=== PATIENT | male | born 1960 | race Caucasian/White ===

== ENCOUNTER 2018-03-08 06:40 | Inpatient (IN) | payer MEDICARE, OTHER ==
[2018-03-08] MEDS: SOD CHLORIDE 0.9% 1,000 ML IV ×2 (07:07→12:44)
[2018-03-08] MEDS: DEXTROSE 50% 50 ML SYRINGE IV ×2 (07:37→11:28)
[2018-03-08 07:59] LABS: ADD MAN DIFF? NO
[2018-03-08 09:23] LABS: WHITE BLOOD COUNT 18.6 10^3/ul (4.8-10.8)
[2018-03-08 09:23] LABS: BASOPHIL # 0.1 10^3/ul (0.0-0.1); BASOPHILS % 0.3 % (0.0-2.0); HEMATOCRIT 34.3 % (42.0-52.0); HEMOGLOBIN 11.9 g/dl (14.0-18.0); MEAN CORPUSCULAR HGB CONC 34.7 g/dl (32.0-37.0); MEAN CORPUSCULAR VOLUME 89.3 fl (82.0-101.0); MEAN PLATELET VOLUME 9.9 fl (7.4-10.4); MONOCYTE # 1.2 10^3/ul (0.3-0.9); MONOCYTES % 6.5 % (0.0-11.0); NEUTROPHILS % 80.8 % (39.0-77.0); PLATELET COUNT 266 10^3/UL (140-415); RED BLOOD COUNT 3.84 10^6/ul (4.70-6.10); RED CELL DISTRIBUTION WIDTH 16.8 % (11.5-14.5)
[2018-03-08 09:53] LABS: ALANINE AMINOTRANSFERASE 59 IU/L (13-69); ALBUMIN 1.9 g/dl (3.3-4.9); ALKALINE PHOSPHATASE 260 IU/L (42-121); ANION GAP 14 (8-16); ASPARTATE AMINO TRANSFERASE 77 IU/L (15-46); BILIRUBIN,INDIRECT 0.4 mg/dl (0-1.1); BILIRUBIN,TOTAL 0.7 mg/dl (0.2-1.3); BLOOD UREA NITROGEN 37 mg/dl (7-20); CALCIUM 7.4 mg/dl (8.4-10.2); CARBON DIOXIDE 22 mmol/L (21-31); CHLORIDE 97 mmol/L (97-110); GLUCOSE 91 mg/dl (70-220); POTASSIUM 4.6 mmol/L (3.5-5.1); SODIUM 128 mmol/L (135-144); TOTAL PROTEIN 4.6 g/dl (6.1-8.1)
[2018-03-08] MEDS: SODIUM CHLORIDE 0.9% 1L BAG IV* (09:57)
[2018-03-08 10:01] LABS: CREATININE 2.45 mg/dl (0.61-1.24)
[2018-03-08] MEDS: CEFEPIME 2GM/50 ML (PMX) 50 ML IVPB (10:09)
[2018-03-08] MEDS: VANCOMYCIN 1 GM (PMX) 250 ML IVPB (10:24)
[2018-03-08 10:48] LABS: ADD UMIC YES; UR AMORPHOUS CRYSTAL FEW /HPF (NONE SEEN); UR ASCORBIC ACID NEGATIVE (NEGATIVE); UR BACTERIA MANY /HPF (NONE SEEN); UR BILIRUBIN (Dip) 1+ mg/dL (NEGATIVE); UR BLOOD (Dip) NEGATIVE (NEGATIVE); UR CLARITY CLOUDY (CLEAR); UR COLOR AMBER (YELLOW); UR GLUCOSE (Dip) NEGATIVE (NEGATIVE); UR KETONES (Dip) NEGATIVE (NEGATIVE); UR LEUKOCYTE ESTERASE (Dip) 2+ Leu/ul (NEGATIVE); UR MUCUS FEW /HPF (NONE SEEN); UR NITRITE (Dip) NEGATIVE (NEGATIVE); UR RBC 5 /HPF (0-5); UR SPECIFIC GRAVITY (Dip) 1.021 (1.003-1.030); UR SQUAMOUS EPITHELIAL CELL FEW /HPF (FEW); UR TOTAL PROTEIN (Dip) 1+ mg/dl (NEGATIVE); UR UROBILINOGEN (Dip) 2+ mg/dL (NEGATIVE); UR WBC 110 /HPF (0-5)
[2018-03-08] MEDS ORDERED: DEXTROSE 50% 50 ML SYRINGE IV (11:30)
[2018-03-08 11:43] LABS: LACTIC ACID 1.1 mmol/L (0.5-2.0)
[2018-03-08] MEDS: DEXTROSE 5%-0.9% NACL 1,000 ML IV ×2 (12:29→17:30)
[2018-03-08] MEDS ORDERED: NACL 0.9% 3 ML SYG IV (12:30)
[2018-03-08] MEDS ORDERED: ACETAMINOPHEN 325 MG TAB PO ×2 (12:30→13:00)
[2018-03-08] MEDS ORDERED: ONDANSETRON 4 MG INJ IV (13:00)
[2018-03-08 13:42] LABS: LACTIC ACID 2.4 mmol/L (0.5-2.0)
[2018-03-08] MEDS ORDERED: ONDANSETRON 4 MG TAB PO (14:30)
[2018-03-08] MEDS ORDERED: MINERAL OIL 133 ML ENEMA PR (14:30)
[2018-03-08] MEDS ORDERED: METOCLOPRAMIDE 10 MG TAB PO (14:30)
[2018-03-08] MEDS ORDERED: MAGNESIUM HYDROXIDE 30ML CUP PO (14:30)
[2018-03-08] MEDS ORDERED: ALBUTEROL HFA 8 GM INHALER INH (14:30)
[2018-03-08] MEDS ORDERED: BISACODYL (EC) 5 MG TAB PO (14:30)
[2018-03-08] MEDS: LIDOCAINE 1% (MPF) 5 ML VIAL SC (16:00)
[2018-03-08] MEDS: metroNIDAZOLE 500 MG TAB PO ×2 (16:00→21:30)
[2018-03-08] MEDS: PANTOPRAZOLE (EC) 40 MG TAB PO (16:00)
[2018-03-08 16:04] LABS: SODIUM,URINE RANDOM 19 mmol/L (30-90)
[2018-03-08 16:14] LABS: CREATININE,URINE RANDOM 240.26 mg/dl (20-370)
[2018-03-08 16:35] LABS: LACTIC ACID 1.6 mmol/L (0.5-2.0)
[2018-03-08] MEDS: SUCRALFATE (100 MG/ML) 10ML CUP PO ×2 (17:05→21:30)
[2018-03-08] MEDS: NORepinephrine 8MG/250 ML (PMX 250 ML IV ×2 (17:06→18:40)
[2018-03-08] MEDS: RIVAROXABAN 20 MG TABLET PO (17:35)
[2018-03-08] MEDS: TAMSULOSIN (SR) 0.4 MG CAP PO (21:30)
[2018-03-08] MEDS: ATORVASTATIN 80 MG TAB PO (21:30)
[2018-03-09] MEDS: DEXTROSE 5%-0.9% NACL 1,000 ML IV ×5 (00:18→18:30)
[2018-03-09] MEDS: PANTOPRAZOLE (EC) 40 MG TAB PO ×2 (05:36→16:00)
[2018-03-09] MEDS: metroNIDAZOLE 500 MG TAB PO ×2 (05:36→13:48)
[2018-03-09 06:17] LABS: ADD MAN DIFF? NO
[2018-03-09 06:34] LABS: WHITE BLOOD COUNT 15.1 10^3/ul (4.8-10.8)
[2018-03-09 06:34] LABS: ABNORMAL IP MESSAGE 1; BASOPHILS % 0.1 % (0.0-2.0); EOSINOPHILS # 0.1 10^3/ul (0.0-0.5); EOSINOPHILS % 0.3 % (0.0-7.0); HEMATOCRIT 28.4 % (42.0-52.0); HEMOGLOBIN 10.3 g/dl (14.0-18.0); LYMPHOCYTES # 1.5 10^3/ul (0.8-2.9); LYMPHOCYTES % 10.2 % (15.0-51.0); MEAN CORPUSCULAR HEMOGLOBIN 31.7 pg (29.0-33.0); MEAN CORPUSCULAR HGB CONC 36.3 g/dl (32.0-37.0); MEAN CORPUSCULAR VOLUME 87.4 fl (82.0-101.0); MEAN PLATELET VOLUME 10.6 fl (7.4-10.4); MONOCYTES % 6.5 % (0.0-11.0); NEUTROPHIL # 12.4 10^3/ul (1.6-7.5); PLATELET COUNT 240 10^3/UL (140-415); POSITIVE DIFF @See below; RED BLOOD COUNT 3.25 10^6/ul (4.70-6.10); RED CELL DISTRIBUTION WIDTH 16.7 % (11.5-14.5)
[2018-03-09] MEDS: SUCRALFATE (100 MG/ML) 10ML CUP PO ×4 (07:05→21:20)
[2018-03-09 07:07] LABS: ANION GAP 14 (8-16); BLOOD UREA NITROGEN 33 mg/dl (7-20); CALCIUM 6.7 mg/dl (8.4-10.2); CARBON DIOXIDE 18 mmol/L (21-31); CHLORIDE 102 mmol/L (97-110); CREATININE 2.08 mg/dl (0.61-1.24); GLUCOSE 126 mg/dl (70-220); MAGNESIUM 1.6 mg/dl (1.7-2.5); POTASSIUM 3.7 mmol/L (3.5-5.1); SODIUM 130 mmol/L (135-144)
[2018-03-09 07:08] LABS: ALANINE AMINOTRANSFERASE 71 IU/L (13-69); ALBUMIN 1.6 g/dl (3.3-4.9); ALKALINE PHOSPHATASE 255 IU/L (42-121); ASPARTATE AMINO TRANSFERASE 89 IU/L (15-46); BILIRUBIN,INDIRECT 0.2 mg/dl (0-1.1); BILIRUBIN,TOTAL 0.6 mg/dl (0.2-1.3); TOTAL PROTEIN 3.8 g/dl (6.1-8.1)
[2018-03-09 07:18] LABS: IRON 37 ug/dl (35-150)
[2018-03-09 07:28] LABS: % IRON SATURATION 32 % SAT (22-52); TOTAL IRON BINDING CAPACITY 115 ug/dl (241-421)
[2018-03-09 08:00] LABS: HEMOGLOBIN A1C 4.6 % (0-5.9)
[2018-03-09] MEDS: MAGNESIUM OXIDE 400 MG TAB PO (08:24)
[2018-03-09] MEDS: CHOLECALCIFEROL 1,000 UNIT TAB PO (08:24)
[2018-03-09] MEDS ORDERED: ENOXAPARIN 40 MG/0.4 ML SYG SC (09:00)
[2018-03-09] MEDS: CEFEPIME 2GM/50 ML (PMX) 50 ML IVPB (11:35)
[2018-03-09] MEDS: LIDOCAINE 1% (MPF) 5 ML VIAL SC (12:45)
[2018-03-09] MEDS: RIVAROXABAN 20 MG TABLET PO (16:36)
[2018-03-09] MEDS: LIDOCAINE 1% (MDV) 10 ML INJ (17:57)
[2018-03-09] MEDS: ATORVASTATIN 80 MG TAB PO (21:20)
[2018-03-09] MEDS: TAMSULOSIN (SR) 0.4 MG CAP PO (21:20)
[2018-03-10] MEDS: DEXTROSE 5%-0.9% NACL 1,000 ML IV ×2 (00:05→13:33)
[2018-03-10] MEDS: SOD CHLORIDE 0.9% 1,000 ML IV ×2 (03:43→17:13)
[2018-03-10 05:35] LABS: ADD MAN DIFF? NO
[2018-03-10 05:47] LABS: WHITE BLOOD COUNT 12.1 10^3/ul (4.8-10.8)
[2018-03-10 05:47] LABS: ABNORMAL IP MESSAGE 1; BASOPHILS % 0.2 % (0.0-2.0); EOSINOPHILS # 0.1 10^3/ul (0.0-0.5); EOSINOPHILS % 0.4 % (0.0-7.0); HEMATOCRIT 28.3 % (42.0-52.0); LYMPHOCYTES # 1.8 10^3/ul (0.8-2.9); MEAN CORPUSCULAR HEMOGLOBIN 30.7 pg (29.0-33.0); MEAN CORPUSCULAR HGB CONC 35.3 g/dl (32.0-37.0); MEAN CORPUSCULAR VOLUME 86.8 fl (82.0-101.0); MEAN PLATELET VOLUME 10.5 fl (7.4-10.4); MONOCYTE # 0.8 10^3/ul (0.3-0.9); MONOCYTES % 6.6 % (0.0-11.0); NEUTROPHIL # 9.2 10^3/ul (1.6-7.5); NEUTROPHILS % 76.2 % (39.0-77.0); PLATELET COUNT 194 10^3/UL (140-415); POSITIVE DIFF @See below; RED BLOOD COUNT 3.26 10^6/ul (4.70-6.10); RED CELL DISTRIBUTION WIDTH 16.9 % (11.5-14.5)
[2018-03-10 06:11] LABS: ALANINE AMINOTRANSFERASE 82 IU/L (13-69); ALBUMIN 1.5 g/dl (3.3-4.9); ALBUMIN/GLOBULIN RATIO 0.62; ALKALINE PHOSPHATASE 259 IU/L (42-121); ANION GAP 11 (8-16); ASPARTATE AMINO TRANSFERASE 103 IU/L (15-46); BILIRUBIN,INDIRECT 0.3 mg/dl (0-1.1); BILIRUBIN,TOTAL 0.5 mg/dl (0.2-1.3); BLOOD UREA NITROGEN 31 mg/dl (7-20); CALCIUM 6.6 mg/dl (8.4-10.2); CARBON DIOXIDE 18 mmol/L (21-31); CHLORIDE 106 mmol/L (97-110); CREATININE 1.75 mg/dl (0.61-1.24); GLUCOSE 96 mg/dl (70-220); MAGNESIUM 1.6 mg/dl (1.7-2.5); PHOSPHORUS 2.5 mg/dl (2.5-4.9); POTASSIUM 3.7 mmol/L (3.5-5.1); SODIUM 131 mmol/L (135-144); TOTAL PROTEIN 3.9 g/dl (6.1-8.1)
[2018-03-10] MEDS: PANTOPRAZOLE (EC) 40 MG TAB PO ×2 (06:47→17:18)
[2018-03-10] MEDS: SUCRALFATE (100 MG/ML) 10ML CUP PO ×4 (06:47→21:20)
[2018-03-10] MEDS: MAGNESIUM OXIDE 400 MG TAB PO (08:33)
[2018-03-10] MEDS: CHOLECALCIFEROL 1,000 UNIT TAB PO (08:33)
[2018-03-10] MEDS: CEFEPIME 2GM/50 ML (PMX) 50 ML IVPB (10:19)
[2018-03-10] MEDS: RIVAROXABAN 20 MG TABLET PO (17:18)
[2018-03-10] MEDS: TAMSULOSIN (SR) 0.4 MG CAP PO (21:20)
[2018-03-10] MEDS: ATORVASTATIN 80 MG TAB PO (21:20)
[2018-03-11] MEDS: SOD CHLORIDE 0.9% 1,000 ML IV ×7 (01:38→23:36)
[2018-03-11 05:56] LABS: HEMATOCRIT 32.8 % (42.0-52.0); HEMOGLOBIN 11.7 g/dl (14.0-18.0); MEAN CORPUSCULAR HEMOGLOBIN 30.5 pg (29.0-33.0); MEAN CORPUSCULAR HGB CONC 35.7 g/dl (32.0-37.0); MEAN CORPUSCULAR VOLUME 85.6 fl (82.0-101.0); MEAN PLATELET VOLUME 10.4 fl (7.4-10.4); PLATELET COUNT 155 10^3/UL (140-415); POSITIVE DIFF @See below; RED BLOOD COUNT 3.83 10^6/ul (4.70-6.10); RED CELL DISTRIBUTION WIDTH 17.1 % (11.5-14.5)
[2018-03-11 05:56] LABS: WHITE BLOOD COUNT 12.9 10^3/ul (4.8-10.8)
[2018-03-11 06:15] LABS: ADD MAN DIFF? YES
[2018-03-11] MEDS: PANTOPRAZOLE (EC) 40 MG TAB PO ×3 (06:44→18:00)
[2018-03-11] MEDS: SUCRALFATE (100 MG/ML) 10ML CUP PO ×4 (06:44→21:22)
[2018-03-11 06:51] LABS: ALANINE AMINOTRANSFERASE 92 IU/L (13-69); ALBUMIN 1.5 g/dl (3.3-4.9); ALBUMIN/GLOBULIN RATIO 0.62; ALKALINE PHOSPHATASE 380 IU/L (42-121); ANION GAP 10 (8-16); ASPARTATE AMINO TRANSFERASE 114 IU/L (15-46); BILIRUBIN,INDIRECT 0.3 mg/dl (0-1.1); BILIRUBIN,TOTAL 0.3 mg/dl (0.2-1.3); BLOOD UREA NITROGEN 29 mg/dl (7-20); CALCIUM 6.4 mg/dl (8.4-10.2); CARBON DIOXIDE 16 mmol/L (21-31); CHLORIDE 106 mmol/L (97-110); CREATININE 1.35 mg/dl (0.61-1.24); GLUCOSE 99 mg/dl (70-220); MAGNESIUM 1.6 mg/dl (1.7-2.5); PHOSPHORUS 2.5 mg/dl (2.5-4.9); POTASSIUM 3.7 mmol/L (3.5-5.1); SODIUM 128 mmol/L (135-144); TOTAL PROTEIN 3.9 g/dl (6.1-8.1)
[2018-03-11] MEDS: VASOPRESSIN 100 UNIT in SOD CHLORIDE 0.9% 95 ML IV (07:56)
[2018-03-11 08:33] LABS: ANISOCYTOSIS 2+ (0-0); BAND NEUTROPHILS #M 0.3 10^3/ul (0.0-0.6); BAND NEUTROPHILS % (M) 3 % (0-4); BURR CELLS 3+ (0-0); EOSINOPHILS % (M) 1 % (0-7); LYMPHOCYTES % (M) 16 % (15-51); MONOCYTE #M 0.9 10^3/ul (0.3-0.9); MONOCYTES % (M) 7 % (0-11); OVALOCYTES 1+ (0-0); PLATELET ESTIMATE NORMAL; POIKILOCYTOSIS 2+ (0-0); POLYCHROMASIA 1+ (0-0); SEG NEUT #M 9.5 10^3/ul (1.6-7.5); SEGMENTED NEUTROPHILS (M) % 73 % (39-77); SMUDGE%M 6 % (0-0)
[2018-03-11] MEDS: MAGNESIUM OXIDE 400 MG TAB PO (08:51)
[2018-03-11] MEDS: CEFEPIME 2GM/50 ML (PMX) 50 ML IVPB (08:51)
[2018-03-11] MEDS: CHOLECALCIFEROL 1,000 UNIT TAB PO (08:51)
[2018-03-11] MEDS: ALBUMIN HUMAN 25% 100 ML IV (10:31)
[2018-03-11] MEDS: metroNIDAZOLE 500 MG/NS (PMX) 100 ML IVPB (10:43)
[2018-03-11] MEDS: MAGNESIUM SULFATE 2 GM/50 ML 50 ML IVPB (10:53)
[2018-03-11 16:47] LABS: ADD UMIC YES; UR ASCORBIC ACID NEGATIVE (NEGATIVE); UR BACTERIA FEW /HPF (NONE SEEN); UR BILIRUBIN (Dip) NEGATIVE (NEGATIVE); UR BLOOD (Dip) 1+ mg/dL (NEGATIVE); UR CLARITY SLIGHTLY CLOUDY (CLEAR); UR COLOR AMBER (YELLOW); UR GLUCOSE (Dip) NEGATIVE (NEGATIVE); UR KETONES (Dip) TRACE mg/dL (NEGATIVE); UR LEUKOCYTE ESTERASE (Dip) NEGATIVE Leu/ul (NEGATIVE); UR MUCUS FEW /HPF (NONE SEEN); UR NITRITE (Dip) NEGATIVE (NEGATIVE); UR RBC 2 /HPF (0-5); UR SPECIFIC GRAVITY (Dip) 1.021 (1.003-1.030); UR SQUAMOUS EPITHELIAL CELL FEW /HPF (FEW); UR TOTAL PROTEIN (Dip) 1+ mg/dl (NEGATIVE); UR UROBILINOGEN (Dip) 1+ mg/dL (NEGATIVE); UR WBC 16 /HPF (0-5)
[2018-03-11] MEDS: RIVAROXABAN 20 MG TABLET PO (18:00)
[2018-03-11] MEDS: CASPOFUNGIN 70 MG in SOD CHLORIDE 0.9% 250 ML IVPB (18:03)
[2018-03-11] MEDS: VANCOMYCIN HCL 250 MG/5ML POSYG PO ×2 (18:03→23:36)
[2018-03-11] MEDS: PIPER-TAZO 3.375 GM IV (PMX) 100 ML IVPB (21:22)
[2018-03-11] MEDS: ATORVASTATIN 80 MG TAB PO (21:22)
[2018-03-11] MEDS: TAMSULOSIN (SR) 0.4 MG CAP PO (21:22)
[2018-03-12 04:49] LABS: ADD MAN DIFF? NO
[2018-03-12 04:54] LABS: WHITE BLOOD COUNT 11.2 10^3/ul (4.8-10.8)
[2018-03-12 04:54] LABS: BASOPHILS % 0.2 % (0.0-2.0); EOSINOPHILS # 0.1 10^3/ul (0.0-0.5); EOSINOPHILS % 1.2 % (0.0-7.0); HEMOGLOBIN 11.1 g/dl (14.0-18.0); LYMPHOCYTES # 1.6 10^3/ul (0.8-2.9); LYMPHOCYTES % 13.9 % (15.0-51.0); MEAN CORPUSCULAR HEMOGLOBIN 30.1 pg (29.0-33.0); MEAN CORPUSCULAR HGB CONC 34.7 g/dl (32.0-37.0); MEAN CORPUSCULAR VOLUME 86.7 fl (82.0-101.0); MEAN PLATELET VOLUME 10.7 fl (7.4-10.4); MONOCYTE # 0.6 10^3/ul (0.3-0.9); NEUTROPHIL # 8.8 10^3/ul (1.6-7.5); PLATELET COUNT 142 10^3/UL (140-415); POSITIVE DIFF @See below; RED BLOOD COUNT 3.69 10^6/ul (4.70-6.10); RED CELL DISTRIBUTION WIDTH 17.3 % (11.5-14.5)
[2018-03-12] MEDS: SOD CHLORIDE 0.9% 1,000 ML IV ×2 (05:06→10:05)
[2018-03-12 05:26] LABS: ALANINE AMINOTRANSFERASE 81 IU/L (13-69); ALBUMIN 1.4 g/dl (3.3-4.9); ALKALINE PHOSPHATASE 507 IU/L (42-121); ANION GAP 10 (8-16); ASPARTATE AMINO TRANSFERASE 112 IU/L (15-46); BILIRUBIN,INDIRECT 0.3 mg/dl (0-1.1); BILIRUBIN,TOTAL 0.4 mg/dl (0.2-1.3); BLOOD UREA NITROGEN 26 mg/dl (7-20); CALCIUM 6.3 mg/dl (8.4-10.2); CARBON DIOXIDE 15 mmol/L (21-31); CHLORIDE 108 mmol/L (97-110); CREATININE 1.16 mg/dl (0.61-1.24); GLUCOSE 107 mg/dl (70-220); MAGNESIUM 1.9 mg/dl (1.7-2.5); PHOSPHORUS 2.5 mg/dl (2.5-4.9); POTASSIUM 3.4 mmol/L (3.5-5.1); SODIUM 130 mmol/L (135-144); TOTAL PROTEIN 3.7 g/dl (6.1-8.1)
[2018-03-12] MEDS: PIPER-TAZO 3.375 GM IV (PMX) 100 ML IVPB ×3 (06:17→22:26)
[2018-03-12] MEDS: SUCRALFATE (100 MG/ML) 10ML CUP PO ×4 (06:17→21:00)
[2018-03-12] MEDS: VANCOMYCIN HCL 250 MG/5ML POSYG PO ×3 (06:17→18:26)
[2018-03-12] MEDS: PANTOPRAZOLE (EC) 40 MG TAB PO ×2 (06:17→17:21)
[2018-03-12 07:35] LABS: ANISOCYTOSIS 2+ (0-0); BAND NEUTROPHILS #M 0.6 10^3/ul (0.0-0.6); BAND NEUTROPHILS % (M) 6 % (0-4); BURR CELLS 3+ (0-0); EOSINOPHILS % (M) 1 % (0-7); LYMPHOCYTES % (M) 9 % (15-51); MONOCYTE #M 0.5 10^3/ul (0.3-0.9); MONOCYTES % (M) 5 % (0-11); PLATELET ESTIMATE NORMAL; POIKILOCYTOSIS 3+ (0-0); POLYCHROMASIA 1+ (0-0); SEG NEUT #M 8.9 10^3/ul (1.6-7.5); SEGMENTED NEUTROPHILS (M) % 79 % (39-77); SMUDGE%M 8 % (0-0)
[2018-03-12] MEDS: POTASSIUM CHLORIDE (SR) 20 MEQ TAB PO (10:05)
[2018-03-12] MEDS: CHOLECALCIFEROL 1,000 UNIT TAB PO (10:05)
[2018-03-12] MEDS: MAGNESIUM OXIDE 400 MG TAB PO (10:05)
[2018-03-12] MEDS: PHENYLephrine 40 MG in DEXTROSE 5% 496 ML IV (13:36)
[2018-03-12] MEDS: RIVAROXABAN 20 MG TABLET PO (17:21)
[2018-03-12] MEDS: CASPOFUNGIN 50 MG in SOD CHLORIDE 0.9% 250 ML IVPB (18:26)
[2018-03-12] MEDS: FUROSEMIDE 40 MG INJ IV (18:27)
[2018-03-12] MEDS: LINEZOLID 600 MG/D5W (PMX) 300 ML IVPB (19:00)
[2018-03-12 19:07] LABS: AMMONIA 27 umol/l (9-30)
[2018-03-12 19:19] LABS: ADD UMIC YES; UR ASCORBIC ACID NEGATIVE (NEGATIVE); UR BILIRUBIN (Dip) NEGATIVE (NEGATIVE); UR BLOOD (Dip) 1+ mg/dL (NEGATIVE); UR CLARITY CLOUDY (CLEAR); UR COLOR AMBER (YELLOW); UR GLUCOSE (Dip) NEGATIVE (NEGATIVE); UR KETONES (Dip) TRACE mg/dL (NEGATIVE); UR LEUKOCYTE ESTERASE (Dip) TRACE Leu/ul (NEGATIVE); UR MUCUS FEW /HPF (NONE SEEN); UR NITRITE (Dip) NEGATIVE (NEGATIVE); UR RBC 5 /HPF (0-5); UR SPECIFIC GRAVITY (Dip) 1.029 (1.003-1.030); UR TOTAL PROTEIN (Dip) 2+ mg/dl (NEGATIVE); UR UROBILINOGEN (Dip) NEGATIVE (NEGATIVE); UR WBC 14 /HPF (0-5)
[2018-03-12 19:55] LABS: ERYTHROCYTE SEDIMENTATION RATE 25 mm/Hr (0-20)
[2018-03-12] MEDS: NORepinephrine 32 MG in DEXTROSE 5% 218 ML IV (20:12)
[2018-03-12] MEDS: PHENYLephrine 160 MG in DEXTROSE 5% 484 ML IV (20:14)
[2018-03-12 20:27] LABS: ALANINE AMINOTRANSFERASE 86 IU/L (13-69); ALBUMIN 1.3 g/dl (3.3-4.9); ALBUMIN/GLOBULIN RATIO 0.72; ALKALINE PHOSPHATASE 509 IU/L (42-121); ANION GAP 16 (8-16); ASPARTATE AMINO TRANSFERASE 107 IU/L (15-46); BILIRUBIN,INDIRECT 0.1 mg/dl (0-1.1); BILIRUBIN,TOTAL 0.1 mg/dl (0.2-1.3); BLOOD UREA NITROGEN 26 mg/dl (7-20); CALCIUM 6.2 mg/dl (8.4-10.2); CARBON DIOXIDE 14 mmol/L (21-31); CHLORIDE 102 mmol/L (97-110); CREATININE 1.08 mg/dl (0.61-1.24); GLUCOSE 94 mg/dl (70-220); POTASSIUM 3.6 mmol/L (3.5-5.1); SODIUM 128 mmol/L (135-144); TOTAL PROTEIN 3.1 g/dl (6.1-8.1)
[2018-03-12 20:32] LABS: AMYLASE < 30 U/L (11-123)
[2018-03-12 20:44] LABS: OSMOLALITY,URINE 395 mOsm/kg (250-1200)
[2018-03-12 20:54] LABS: SODIUM,URINE RANDOM < 13 mmol/L (30-90)
[2018-03-12 20:57] LABS: VITAMIN B1 (THIAMINE) 53 nmol/L (78-185)
[2018-03-12] MEDS: TAMSULOSIN (SR) 0.4 MG CAP PO (21:00)
[2018-03-12] MEDS: ATORVASTATIN 80 MG TAB PO (21:00)
[2018-03-12] MEDS: BUMETANIDE 1 MG INJ IV ×2 (21:54→22:26)
[2018-03-12 22:09] LABS: AADO2 Arterial 227.6 mmHg (7.0-24.0); Arterial Base Excess -15.6 mmol/L (-3.0-3); Arterial Blood Gas Oxygen Sat 99.8 mmHG (95.0-98.0); Arterial COHb 0.5 % (0.0-3.0); Arterial HCO3 7.7 mmol/L (22.0-26.0); Arterial MetHb 0.3 % (0.0-1.5); Arterial Total Hemglobin 13.3 g/dl (12.0-18.0); Arterial pCO2 15.3 mmhg (35-45); Blood Gas IEPAP 15/5; MODE MASK - BIPAP; Site Right Radial
[2018-03-12] MEDS: METOLAZONE 10 MG TAB PO (22:22)
[2018-03-12] MEDS: NA BICARBONATE 8.4% 50 ML SYG IV (22:22)
[2018-03-12] MEDS: BALSAM PERU/CASTOR OIL 60 GM TUBE TOP (22:26)
[2018-03-13 01:16] LABS: AADO2 Arterial 126.3 mmHg (7.0-24.0); Allen Test ACCEPTAB; Arterial Base Excess -12.9 mmol/L (-3.0-3); Arterial Blood Gas Oxygen Sat 99.4 mmHG (95.0-98.0); Arterial COHb 0.5 % (0.0-3.0); Arterial Fraction of Oxyhgb 98.8 % (93.0-99.0); Arterial HCO3 9.7 mmol/L (22.0-26.0); Arterial MetHb 0.1 % (0.0-1.5); Arterial Total Hemglobin 16.1 g/dl (12.0-18.0); Blood Gas IEPAP 15/5; Blood Gas PS 10; MODE MASK - BIPAP; Site Right Radial
[2018-03-13] MEDS: NA BICARBONATE 8.4% 50 ML SYG IV ×2 (01:57→05:52)
[2018-03-13] MEDS: VASOPRESSIN 100 UNIT in SOD CHLORIDE 0.9% 95 ML IV (04:13)
[2018-03-13 05:17] LABS: ADD MAN DIFF? NO
[2018-03-13 05:44] LABS: WHITE BLOOD COUNT 20.1 10^3/ul (4.8-10.8)
[2018-03-13 05:44] LABS: BASOPHIL # 0.1 10^3/ul (0.0-0.1); BASOPHILS % 0.2 % (0.0-2.0); EOSINOPHILS # 0.1 10^3/ul (0.0-0.5); EOSINOPHILS % 0.4 % (0.0-7.0); HEMATOCRIT 39.6 % (42.0-52.0); HEMOGLOBIN 13.5 g/dl (14.0-18.0); LYMPHOCYTES # 3.9 10^3/ul (0.8-2.9); LYMPHOCYTES % 19.3 % (15.0-51.0); MEAN CORPUSCULAR HEMOGLOBIN 29.9 pg (29.0-33.0); MEAN CORPUSCULAR HGB CONC 34.1 g/dl (32.0-37.0); MEAN CORPUSCULAR VOLUME 87.6 fl (82.0-101.0); MEAN PLATELET VOLUME 11.8 fl (7.4-10.4); MONOCYTES % 4.9 % (0.0-11.0); NEUTROPHIL # 14.7 10^3/ul (1.6-7.5); NEUTROPHILS % 73.6 % (39.0-77.0); NUCLEATED RED BLOOD CELLS% 0.1 /100WBC (0.0-0.0); PLATELET COUNT 118 10^3/UL (140-415); RED BLOOD COUNT 4.52 10^6/ul (4.70-6.10); RED CELL DISTRIBUTION WIDTH 17.1 % (11.5-14.5)
[2018-03-13 05:45] LABS: ALANINE AMINOTRANSFERASE 78 IU/L (13-69); ALBUMIN 2.2 g/dl (3.3-4.9); ALBUMIN/GLOBULIN RATIO 0.95; ALKALINE PHOSPHATASE 908 IU/L (42-121); ANION GAP 18 (8-16); ASPARTATE AMINO TRANSFERASE 131 IU/L (15-46); BILIRUBIN,INDIRECT 0.3 mg/dl (0-1.1); BILIRUBIN,TOTAL 0.5 mg/dl (0.2-1.3); BLOOD UREA NITROGEN 26 mg/dl (7-20); CALCIUM 6.9 mg/dl (8.4-10.2); CARBON DIOXIDE 15 mmol/L (21-31); CHLORIDE 98 mmol/L (97-110); CREATININE 1.43 mg/dl (0.61-1.24); GLUCOSE 147 mg/dl (70-220); POTASSIUM 3.5 mmol/L (3.5-5.1); SODIUM 127 mmol/L (135-144); TOTAL PROTEIN 4.5 g/dl (6.1-8.1)
[2018-03-13] MEDS: SUCRALFATE (100 MG/ML) 10ML CUP PO ×4 (05:51→20:38)
[2018-03-13] MEDS: PIPER-TAZO 3.375 GM IV (PMX) 100 ML IVPB (05:52)
[2018-03-13] MEDS: PANTOPRAZOLE (EC) 40 MG TAB PO ×2 (05:52→16:19)
[2018-03-13] MEDS: VANCOMYCIN HCL 250 MG/5ML POSYG PO ×4 (06:05→17:00)
[2018-03-13] MEDS: PHENYLephrine 160 MG in DEXTROSE 5% 484 ML IV ×2 (07:50→16:15)
[2018-03-13] MEDS: CHOLECALCIFEROL 1,000 UNIT TAB PO (08:20)
[2018-03-13] MEDS: BALSAM PERU/CASTOR OIL 60 GM TUBE TOP ×2 (08:20→20:38)
[2018-03-13] MEDS: LINEZOLID 600 MG/D5W (PMX) 300 ML IVPB ×2 (08:20→20:38)
[2018-03-13] MEDS: MAGNESIUM OXIDE 400 MG TAB PO (08:20)
[2018-03-13] MEDS: CALCIUM CARBONATE 500 MG CHEW TAB PO (10:08)
[2018-03-13 10:23] LABS: PHOSPHORUS 2.6 mg/dl (2.5-4.9)
[2018-03-13 10:23] LABS: MAGNESIUM 1.9 mg/dl (1.7-2.5)
[2018-03-13] MEDS: MEROPENEM 1 GM/50ML(PMX) 50 ML IVPB ×2 (11:16→20:37)
[2018-03-13] MEDS ORDERED: DEXTROSE 5% IV (12:00)
[2018-03-13] MEDS ORDERED: BUMETANIDE IV (12:00)
[2018-03-13 12:26] LABS: LACTIC ACID 2.7 mmol/L (0.5-2.0)
[2018-03-13] MEDS: DEXTROSE 5% IV (12:42)
[2018-03-13] MEDS: BUMETANIDE IV (12:42)
[2018-03-13] MEDS: metroNIDAZOLE 500 MG/NS (PMX) 100 ML IVPB ×2 (13:59→22:28)
[2018-03-13] MEDS: CASPOFUNGIN 50 MG in SOD CHLORIDE 0.9% 250 ML IVPB (17:00)
[2018-03-13] MEDS: RIVAROXABAN 20 MG TABLET PO (17:00)
[2018-03-13 19:01] LABS: ANION GAP 12 (8-16); BLOOD UREA NITROGEN 26 mg/dl (7-20); CALCIUM 6.5 mg/dl (8.4-10.2); CARBON DIOXIDE 15 mmol/L (21-31); CHLORIDE 102 mmol/L (97-110); CREATININE 1.29 mg/dl (0.61-1.24); GLUCOSE 142 mg/dl (70-220); POTASSIUM 3.3 mmol/L (3.5-5.1); SODIUM 126 mmol/L (135-144)
[2018-03-13] MEDS: IOHEXOL 14.3 MG(I)/ML (ADULT) BTL PO (19:27)
[2018-03-13] MEDS: TAMSULOSIN (SR) 0.4 MG CAP PO (20:38)
[2018-03-13] MEDS: ATORVASTATIN 80 MG TAB PO (20:38)
[2018-03-14] MEDS: VANCOMYCIN HCL 250 MG/5ML POSYG PO ×5 (00:43→23:42)
[2018-03-14] MEDS: PHENYLephrine 160 MG in DEXTROSE 5% 484 ML IV ×3 (00:44→20:11)
[2018-03-14] MEDS: NORepinephrine 32 MG in DEXTROSE 5% 218 ML IV (00:45)
[2018-03-14] MEDS: ALBUMIN HUMAN 25% 100 ML IV ×2 (01:06→07:38)
[2018-03-14 05:30] LABS: ADD MAN DIFF? NO
[2018-03-14 05:32] LABS: WHITE BLOOD COUNT 23.7 10^3/ul (4.8-10.8)
[2018-03-14 05:32] LABS: ABNORMAL IP MESSAGE 1; BASOPHIL # 0.1 10^3/ul (0.0-0.1); BASOPHILS % 0.3 % (0.0-2.0); EOSINOPHILS # 0.1 10^3/ul (0.0-0.5); EOSINOPHILS % 0.4 % (0.0-7.0); HEMATOCRIT 39.8 % (42.0-52.0); LYMPHOCYTES % 21.2 % (15.0-51.0); MEAN CORPUSCULAR HGB CONC 35.2 g/dl (32.0-37.0); MEAN CORPUSCULAR VOLUME 85.4 fl (82.0-101.0); MEAN PLATELET VOLUME 12.2 fl (7.4-10.4); MONOCYTE # 1.2 10^3/ul (0.3-0.9); MONOCYTES % 4.9 % (0.0-11.0); NEUTROPHIL # 16.6 10^3/ul (1.6-7.5); NUCLEATED RED BLOOD CELLS # 0.1 10^3/ul (0.0-0.0); NUCLEATED RED BLOOD CELLS% 0.3 /100WBC (0.0-0.0); POSITIVE DIFF @See below; RED BLOOD COUNT 4.66 10^6/ul (4.70-6.10); RED CELL DISTRIBUTION WIDTH 17.4 % (11.5-14.5)
[2018-03-14] MEDS: metroNIDAZOLE 500 MG/NS (PMX) 100 ML IVPB ×3 (05:52→23:42)
[2018-03-14] MEDS: PANTOPRAZOLE (EC) 40 MG TAB PO ×2 (05:52→16:14)
[2018-03-14 06:00] LABS: ANION GAP 16 (8-16); BLOOD UREA NITROGEN 26 mg/dl (7-20); CALCIUM 7.2 mg/dl (8.4-10.2); CARBON DIOXIDE 14 mmol/L (21-31); CHLORIDE 100 mmol/L (97-110); CREATININE 1.49 mg/dl (0.61-1.24); GLUCOSE 119 mg/dl (70-220); POTASSIUM 3.5 mmol/L (3.5-5.1); SODIUM 126 mmol/L (135-144)
[2018-03-14 07:37] LABS: PLATELET COUNT 85 10^3/UL (140-415)
[2018-03-14] MEDS: SUCRALFATE (100 MG/ML) 10ML CUP PO ×4 (07:37→20:11)
[2018-03-14 08:43] LABS: AADO2 Arterial 110.3 mmHg (7.0-24.0); Arterial Base Excess -11.9 mmol/L (-3.0-3); Arterial Blood Gas Oxygen Sat 98.9 mmHG (95.0-98.0); Arterial COHb 0.5 % (0.0-3.0); Arterial Fraction of Oxyhgb 98.1 % (93.0-99.0); Arterial HCO3 10.9 mmol/L (22.0-26.0); Arterial MetHb 0.3 % (0.0-1.5); Arterial Total Hemglobin 14.5 g/dl (12.0-18.0); Arterial pCO2 19.4 mmhg (35-45); MODE NASAL CANNULA; Site A-Line
[2018-03-14] MEDS: MEROPENEM 1 GM/50ML(PMX) 50 ML IVPB ×2 (08:56→20:07)
[2018-03-14] MEDS: MAGNESIUM OXIDE 400 MG TAB PO (08:56)
[2018-03-14] MEDS: BALSAM PERU/CASTOR OIL 60 GM TUBE TOP ×2 (08:56→20:12)
[2018-03-14] MEDS: LINEZOLID 600 MG/D5W (PMX) 300 ML IVPB ×2 (08:56→20:11)
[2018-03-14] MEDS: CHOLECALCIFEROL 1,000 UNIT TAB PO (08:56)
[2018-03-14] MEDS ORDERED: NA BICARBONATE 8.4% 50 ML SYG (08:59)
[2018-03-14] MEDS: NA BICARBONATE 8.4% 50 ML SYG IV (09:01)
[2018-03-14 10:06] LABS: LACTIC ACID 2.8 mmol/L (0.5-2.0)
[2018-03-14] MEDS: SODIUM BICARBONATE (IV ADD) 100 MEQ in DEXTROSE 5%-0.45% NACL 1,000 ML IV ×2 (10:30→10:51)
[2018-03-14 14:55] LABS: LACTIC ACID 2.9 mmol/L (0.5-2.0)
[2018-03-14 15:21] LABS: AADO2 Arterial 65.9 mmHg (7.0-24.0); Arterial Base Excess -6.5 mmol/L (-3.0-3); Arterial Blood Gas Oxygen Sat 98.5 mmHG (95.0-98.0); Arterial COHb 0.5 % (0.0-3.0); Arterial Fraction of Oxyhgb 97.7 % (93.0-99.0); Arterial HCO3 16.2 mmol/L (22.0-26.0); Arterial MetHb 0.3 % (0.0-1.5); Arterial Total Hemglobin 12.6 g/dl (12.0-18.0); Arterial pCO2 25.2 mmhg (35-45); MODE NASAL CANNULA; Site A-Line
[2018-03-14] MEDS: CASPOFUNGIN 50 MG in SOD CHLORIDE 0.9% 250 ML IVPB (17:29)
[2018-03-14] MEDS: RIVAROXABAN 20 MG TABLET PO (17:29)
[2018-03-14 18:40] LABS: LACTIC ACID 2.6 mmol/L (0.5-2.0)
[2018-03-14] MEDS: TAMSULOSIN (SR) 0.4 MG CAP PO (20:11)
[2018-03-14] MEDS: ATORVASTATIN 80 MG TAB PO (20:11)
[2018-03-14 22:16] LABS: LACTIC ACID 3.1 mmol/L (0.5-2.0)
[2018-03-14] MEDS: DAPTOMYCIN IVPB (23:41)
[2018-03-14] MEDS: SOD CHLORIDE 0.9% IVPB (23:41)
[2018-03-15] MEDS: SODIUM BICARBONATE (IV ADD) 100 MEQ in DEXTROSE 5%-0.45% NACL 1,000 ML IV (02:54)
[2018-03-15] MEDS ORDERED: HYDROCODONE/APAP (5/325) TAB PO (03:30)
[2018-03-15] MEDS: HYDROCODONE/APAP (10/325) TAB PO (03:50)
[2018-03-15] MEDS: metroNIDAZOLE 500 MG/NS (PMX) 100 ML IVPB ×3 (05:32→22:32)
[2018-03-15] MEDS: NORepinephrine 32 MG in DEXTROSE 5% 218 ML IV ×2 (05:37→21:41)
[2018-03-15] MEDS: PANTOPRAZOLE (EC) 40 MG TAB PO ×2 (05:46→15:54)
[2018-03-15] MEDS: VANCOMYCIN HCL 250 MG/5ML POSYG PO ×4 (05:46→23:53)
[2018-03-15 06:05] LABS: ADD MAN DIFF? NO
[2018-03-15 06:21] LABS: ABNORMAL IP MESSAGE 1; BASOPHIL # 0.1 10^3/ul (0.0-0.1); BASOPHILS % 0.3 % (0.0-2.0); EOSINOPHILS # 0.2 10^3/ul (0.0-0.5); EOSINOPHILS % 0.8 % (0.0-7.0); HEMATOCRIT 34.1 % (42.0-52.0); HEMOGLOBIN 12.3 g/dl (14.0-18.0); LYMPHOCYTES # 4.7 10^3/ul (0.8-2.9); LYMPHOCYTES % 19.7 % (15.0-51.0); MEAN CORPUSCULAR HEMOGLOBIN 30.3 pg (29.0-33.0); MEAN CORPUSCULAR HGB CONC 36.1 g/dl (32.0-37.0); MONOCYTE # 1.2 10^3/ul (0.3-0.9); MONOCYTES % 4.9 % (0.0-11.0); NEUTROPHIL # 16.9 10^3/ul (1.6-7.5); NEUTROPHILS % 70.9 % (39.0-77.0); NUCLEATED RED BLOOD CELLS # 0.1 10^3/ul (0.0-0.0); NUCLEATED RED BLOOD CELLS% 0.4 /100WBC (0.0-0.0); POSITIVE DIFF @See below; RED BLOOD COUNT 4.06 10^6/ul (4.70-6.10); RED CELL DISTRIBUTION WIDTH 16.6 % (11.5-14.5)
[2018-03-15 06:21] LABS: WHITE BLOOD COUNT 23.8 10^3/ul (4.8-10.8)
[2018-03-15 06:29] LABS: PLATELET COUNT 63 10^3/UL (140-415)
[2018-03-15] MEDS: PHENYLephrine 160 MG in DEXTROSE 5% 484 ML IV ×3 (06:32→23:52)
[2018-03-15 06:35] LABS: CREATINE KINASE 72 IU/L (23-200)
[2018-03-15] MEDS: SUCRALFATE (100 MG/ML) 10ML CUP PO ×4 (07:05→20:30)
[2018-03-15 07:12] LABS: ANION GAP 13 (8-16); BLOOD UREA NITROGEN 26 mg/dl (7-20); CALCIUM 6.9 mg/dl (8.4-10.2); CARBON DIOXIDE 17 mmol/L (21-31); CHLORIDE 97 mmol/L (97-110); CREATININE 1.29 mg/dl (0.61-1.24); GLUCOSE 147 mg/dl (70-220); POTASSIUM 3.2 mmol/L (3.5-5.1); SODIUM 124 mmol/L (135-144)
[2018-03-15 07:18] LABS: LACTIC ACID 3.5 mmol/L (0.5-2.0)
[2018-03-15 07:22] LABS: AADO2 Arterial 108.6 mmHg (7.0-24.0); Arterial Base Excess -7.2 mmol/L (-3.0-3); Arterial Blood Gas Oxygen Sat 98.7 mmHG (95.0-98.0); Arterial COHb 0.2 % (0.0-3.0); Arterial Fraction of Oxyhgb 98.2 % (93.0-99.0); Arterial HCO3 15.9 mmol/L (22.0-26.0); Arterial MetHb 0.3 % (0.0-1.5); Arterial Total Hemglobin 13.2 g/dl (12.0-18.0); Arterial pCO2 25.9 mmhg (35-45); MODE NASAL CANNULA; Site A-Line
[2018-03-15] MEDS: CHOLECALCIFEROL 1,000 UNIT TAB PO (08:07)
[2018-03-15] MEDS: MAGNESIUM OXIDE 400 MG TAB PO (08:07)
[2018-03-15] MEDS: BALSAM PERU/CASTOR OIL 60 GM TUBE TOP ×2 (08:17→20:32)
[2018-03-15] MEDS: MEROPENEM 1 GM/50ML(PMX) 50 ML IVPB ×2 (08:17→20:30)
[2018-03-15] MEDS ORDERED: POTASSIUM CHLORIDE 100 ML IVPB (08:29)
[2018-03-15] MEDS: POTASSIUM CHLORIDE 100 ML IVPB ×2 (08:35→10:22)
[2018-03-15] MEDS: HYDROCORTISONE 100 MG INJ IV ×3 (09:06→21:42)
[2018-03-15] MEDS ORDERED: HYDROCODONE/APAP (10/325) TAB PO (10:00)
[2018-03-15] MEDS: ALBUMIN HUMAN 25% 100 ML IV (10:06)
[2018-03-15] MEDS: SODIUM CHLORIDE 1 GM TAB PO ×3 (10:29→20:31)
[2018-03-15] MEDS: VASOPRESSIN 60 UNIT in DEXTROSE 5% 57 ML IV (13:49)
[2018-03-15] MEDS: CASPOFUNGIN 50 MG in SOD CHLORIDE 0.9% 250 ML IVPB (17:17)
[2018-03-15] MEDS: TAMSULOSIN (SR) 0.4 MG CAP PO (20:31)
[2018-03-15] MEDS: HEPARIN 5,000 UNIT/0.5 ML VIAL SC (20:31)
[2018-03-15] MEDS: SOD CHLORIDE 0.9% IVPB (23:53)
[2018-03-15] MEDS: DAPTOMYCIN IVPB (23:53)
[2018-03-16] MEDS: ALBUMIN HUMAN 25% 100 ML IV (02:04)
[2018-03-16 03:13] LABS: ADD MAN DIFF? NO
[2018-03-16 03:17] LABS: WHITE BLOOD COUNT 27.5 10^3/ul (4.8-10.8)
[2018-03-16 03:17] LABS: ABNORMAL IP MESSAGE 1; BASOPHIL # 0.1 10^3/ul (0.0-0.1); BASOPHILS % 0.3 % (0.0-2.0); EOSINOPHILS % 0.1 % (0.0-7.0); HEMOGLOBIN 11.1 g/dl (14.0-18.0); LYMPHOCYTES # 4.2 10^3/ul (0.8-2.9); LYMPHOCYTES % 15.2 % (15.0-51.0); MEAN CORPUSCULAR HEMOGLOBIN 30.2 pg (29.0-33.0); MEAN CORPUSCULAR HGB CONC 35.8 g/dl (32.0-37.0); MEAN CORPUSCULAR VOLUME 84.5 fl (82.0-101.0); MONOCYTE # 1.1 10^3/ul (0.3-0.9); MONOCYTES % 3.9 % (0.0-11.0); NEUTROPHIL # 21.5 10^3/ul (1.6-7.5); NEUTROPHILS % 78.1 % (39.0-77.0); NUCLEATED RED BLOOD CELLS # 0.1 10^3/ul (0.0-0.0); NUCLEATED RED BLOOD CELLS% 0.5 /100WBC (0.0-0.0); POSITIVE DIFF @See below; RED BLOOD COUNT 3.67 10^6/ul (4.70-6.10); RED CELL DISTRIBUTION WIDTH 16.8 % (11.5-14.5)
[2018-03-16 03:18] LABS: PLATELET COUNT 45 10^3/UL (140-415)
[2018-03-16 03:50] LABS: ALANINE AMINOTRANSFERASE 57 IU/L (13-69); ALBUMIN 2.4 g/dl (3.3-4.9); ALBUMIN/GLOBULIN RATIO 1.09; ALKALINE PHOSPHATASE 906 IU/L (42-121); ANION GAP 16 (8-16); ASPARTATE AMINO TRANSFERASE 110 IU/L (15-46); BILIRUBIN,INDIRECT 0.6 mg/dl (0-1.1); BILIRUBIN,TOTAL 1.2 mg/dl (0.2-1.3); BLOOD UREA NITROGEN 28 mg/dl (7-20); CALCIUM 7.3 mg/dl (8.4-10.2); CARBON DIOXIDE 16 mmol/L (21-31); CHLORIDE 96 mmol/L (97-110); CREATININE 1.45 mg/dl (0.61-1.24); GLUCOSE 141 mg/dl (70-220); POTASSIUM 3.6 mmol/L (3.5-5.1); SODIUM 124 mmol/L (135-144); TOTAL PROTEIN 4.6 g/dl (6.1-8.1)
[2018-03-16 03:59] LABS: LACTIC ACID 3.1 mmol/L (0.5-2.0)
[2018-03-16] MEDS: metroNIDAZOLE 500 MG/NS (PMX) 100 ML IVPB ×3 (05:12→21:12)
[2018-03-16] MEDS: PANTOPRAZOLE (EC) 40 MG TAB PO ×2 (05:12→17:51)
[2018-03-16] MEDS: VANCOMYCIN HCL 250 MG/5ML POSYG PO ×3 (05:13→17:51)
[2018-03-16] MEDS: HYDROCORTISONE 100 MG INJ IV ×3 (05:31→21:12)
[2018-03-16] MEDS: SUCRALFATE (100 MG/ML) 10ML CUP PO ×4 (06:38→21:10)
[2018-03-16 07:26] LABS: AADO2 Arterial 103.5 mmHg (7.0-24.0); Arterial Base Excess -6.5 mmol/L (-3.0-3); Arterial Blood Gas Oxygen Sat 97.7 mmHG (95.0-98.0); Arterial COHb 0.3 % (0.0-3.0); Arterial Fraction of Oxyhgb 97.3 % (93.0-99.0); Arterial HCO3 16.7 mmol/L (22.0-26.0); Arterial MetHb 0.1 % (0.0-1.5); Arterial Total Hemglobin 10.8 g/dl (12.0-18.0); Arterial pCO2 26.3 mmhg (35-45); MODE NASAL CANNULA; Site A-Line
[2018-03-16] MEDS: SODIUM CHLORIDE 1 GM TAB PO ×3 (09:00→21:09)
[2018-03-16] MEDS: MAGNESIUM OXIDE 400 MG TAB PO (09:24)
[2018-03-16] MEDS: CHOLECALCIFEROL 1,000 UNIT TAB PO (09:24)
[2018-03-16] MEDS: MEROPENEM 1 GM/50ML(PMX) 50 ML IVPB (09:28)
[2018-03-16 09:31] LABS: LACTIC ACID 2.5 mmol/L (0.5-2.0)
[2018-03-16] MEDS: PHENYLephrine 160 MG in DEXTROSE 5% 484 ML IV (09:33)
[2018-03-16] MEDS: NORepinephrine 32 MG in DEXTROSE 5% 218 ML IV (09:34)
[2018-03-16] MEDS: VASOPRESSIN 60 UNIT in DEXTROSE 5% 57 ML IV (09:35)
[2018-03-16 12:14] LABS: INR 3.63; PROTIME 37.3 Sec (11.9-14.9); PT RATIO 2.9
[2018-03-16 12:21] LABS: PARTIAL THROMBOPLASTIN TIME 75.6 Sec (25.0-35.0)
[2018-03-16] MEDS: BALSAM PERU/CASTOR OIL 60 GM TUBE TOP ×2 (13:11→21:10)
[2018-03-16] MEDS: PHYTONADIONE 10 MG in DEXTROSE 5% 50 ML IVPB (14:17)
[2018-03-16 14:31] LABS: LACTIC ACID 2.4 mmol/L (0.5-2.0)
[2018-03-16] MEDS: LIDOCAINE 1% (MDV) 10 ML INJ (17:42)
[2018-03-16] MEDS: CASPOFUNGIN 50 MG in SOD CHLORIDE 0.9% 250 ML IVPB (17:51)
[2018-03-16 17:59] LABS: FLD MN% 58.5 %; FLD PMN% 41.5 %; FLD RBC 5000 /uL; FLD WBC 1463 /cmm
[2018-03-16 18:12] LABS: FLUID LD 917 U/L; FLUID TOTAL PROTEIN < 2.0 g/dl; FLUID TYPE PLEURAL FLUID
[2018-03-16 18:23] LABS: FLUID GLUCOSE 118 mg/dl; FLUID TYPE PLEURAL FLUID
[2018-03-16 19:04] LABS: FLD TYPE THORACENTHESIS
[2018-03-16 19:05] LABS: FLD CLARITY HAZY; FLD COLOR ORANGE
[2018-03-16 19:55] LABS: LACTIC ACID 1.7 mmol/L (0.5-2.0)
[2018-03-16 20:47] LABS: HEPATITIS B SURFACE ANTIBODY NEGATIVE (NEGATIVE)
[2018-03-16 21:01] LABS: HEPATITIS B SURFACE ANTIGEN NEGATIVE (NEGATIVE)
[2018-03-16] MEDS: TAMSULOSIN (SR) 0.4 MG CAP PO (21:09)
[2018-03-16] MEDS: MEROPENEM 500MG/50 ML (PMX) 50 ML IVPB (21:10)
[2018-03-16] MEDS: DAPTOMYCIN 650 MG in SOD CHLORIDE 0.9% 100 ML IVPB (22:27)
[2018-03-16 22:44] LABS: LACTIC ACID 1.5 mmol/L (0.5-2.0)
[2018-03-16 23:00] LABS: TYPE AND SCREEN 1
[2018-03-17] MEDS: VANCOMYCIN HCL 250 MG/5ML POSYG PO ×5 (00:26→23:27)
[2018-03-17 03:04] LABS: ADD MAN DIFF? NO
[2018-03-17 03:08] LABS: WHITE BLOOD COUNT 26.2 10^3/ul (4.8-10.8)
[2018-03-17 03:08] LABS: ABNORMAL IP MESSAGE 1; BASOPHIL # 0.1 10^3/ul (0.0-0.1); BASOPHILS % 0.2 % (0.0-2.0); HEMATOCRIT 21.5 % (42.0-52.0); HEMOGLOBIN 7.6 g/dl (14.0-18.0); LYMPHOCYTES # 2.5 10^3/ul (0.8-2.9); LYMPHOCYTES % 9.4 % (15.0-51.0); MEAN CORPUSCULAR HEMOGLOBIN 30.6 pg (29.0-33.0); MEAN CORPUSCULAR HGB CONC 35.3 g/dl (32.0-37.0); MEAN CORPUSCULAR VOLUME 86.7 fl (82.0-101.0); MEAN PLATELET VOLUME 12.2 fl (7.4-10.4); MONOCYTE # 0.9 10^3/ul (0.3-0.9); MONOCYTES % 3.5 % (0.0-11.0); NEUTROPHIL # 21.9 10^3/ul (1.6-7.5); NEUTROPHILS % 83.6 % (39.0-77.0); NUCLEATED RED BLOOD CELLS # 0.2 10^3/ul (0.0-0.0); NUCLEATED RED BLOOD CELLS% 0.8 /100WBC (0.0-0.0); PLATELET COUNT 82 10^3/UL (140-415); POSITIVE DIFF @See below; RED BLOOD COUNT 2.48 10^6/ul (4.70-6.10); RED CELL DISTRIBUTION WIDTH 17.3 % (11.5-14.5)
[2018-03-17 03:23] LABS: LACTIC ACID 1.5 mmol/L (0.5-2.0)
[2018-03-17 03:24] LABS: ANION GAP 13 (8-16); BLOOD UREA NITROGEN 30 mg/dl (7-20); CALCIUM 7.4 mg/dl (8.4-10.2); CARBON DIOXIDE 21 mmol/L (21-31); CHLORIDE 95 mmol/L (97-110); CREATININE 1.57 mg/dl (0.61-1.24); GLUCOSE 127 mg/dl (70-220); MAGNESIUM 1.7 mg/dl (1.7-2.5); POTASSIUM 3.7 mmol/L (3.5-5.1); SODIUM 125 mmol/L (135-144)
[2018-03-17 03:29] LABS: INR 2.34; PROTIME 26.3 Sec (11.9-14.9); PT RATIO 2.1
[2018-03-17 03:30] LABS: PARTIAL THROMBOPLASTIN TIME 56.9 Sec (25.0-35.0)
[2018-03-17] MEDS: LEVALBUTEROL (NEB) 0.63 MG/3 ML AMP HHN (03:41)
[2018-03-17] MEDS: IPRATROPIUM (NEB) 0.5 MG/2.5 ML AMP HHN (03:41)
[2018-03-17] MEDS: HYDROCORTISONE 100 MG INJ IV ×3 (05:17→22:51)
[2018-03-17] MEDS: PANTOPRAZOLE (EC) 40 MG TAB PO ×2 (05:17→16:00)
[2018-03-17] MEDS: metroNIDAZOLE 500 MG/NS (PMX) 100 ML IVPB ×3 (05:17→22:51)
[2018-03-17] MEDS: VASOPRESSIN 60 UNIT in DEXTROSE 5% 57 ML IV (05:26)
[2018-03-17] MEDS: SUCRALFATE (100 MG/ML) 10ML CUP PO ×4 (07:05→20:21)
[2018-03-17 08:26] LABS: AADO2 Arterial 63.5 mmHg (7.0-24.0); Arterial Base Excess -4.9 mmol/L (-3.0-3); Arterial COHb 0.5 % (0.0-3.0); Arterial Fraction of Oxyhgb 97.2 % (93.0-99.0); Arterial HCO3 20.8 mmol/L (22.0-26.0); Arterial MetHb 0.3 % (0.0-1.5); Arterial Total Hemglobin 11.8 g/dl (12.0-18.0); Arterial pCO2 40.7 mmhg (35-45); MODE NASAL CANNULA; Site A-Line
[2018-03-17] MEDS: SODIUM CHLORIDE 1 GM TAB PO ×3 (08:48→20:21)
[2018-03-17] MEDS: BALSAM PERU/CASTOR OIL 60 GM TUBE TOP ×2 (08:48→20:27)
[2018-03-17] MEDS: CHOLECALCIFEROL 1,000 UNIT TAB PO (08:48)
[2018-03-17] MEDS: MAGNESIUM OXIDE 400 MG TAB PO (08:48)
[2018-03-17 09:18] LABS: HEMATOCRIT 22.8 % (42.0-52.0); HEMOGLOBIN 7.9 g/dl (14.0-18.0)
[2018-03-17] MEDS: NORepinephrine 32 MG in DEXTROSE 5% 218 ML IV (09:32)
[2018-03-17] MEDS: PHYTONADIONE 10 MG in DEXTROSE 5% 50 ML IVPB (09:33)
[2018-03-17] MEDS: SOD CHLORIDE 0.9% 250 ML IV* (09:33)
[2018-03-17 09:48] LABS: LACTIC ACID 1.6 mmol/L (0.5-2.0)
[2018-03-17] MEDS: MEROPENEM 500MG/50 ML (PMX) 50 ML IVPB ×2 (10:10→20:26)
[2018-03-17 11:04] LABS: TYPE AND SCREEN 1 1
[2018-03-17] MEDS: ALBUMIN HUMAN 25% 50 ML IV ×2 (12:11→20:26)
[2018-03-17] MEDS: FUROSEMIDE 40 MG INJ IV ×2 (13:14→22:51)
[2018-03-17 14:03] LABS: INR 2.05; PROTIME 23.6 Sec (11.9-14.9); PT RATIO 1.8
[2018-03-17 14:04] LABS: PARTIAL THROMBOPLASTIN TIME 54.9 Sec (25.0-35.0)
[2018-03-17 14:05] LABS: THROMBIN TIME 28.9 SEC (13.8-19.1)
[2018-03-17 14:10] LABS: D-DIMER 2547.56 ng/ml (<460)
[2018-03-17 14:31] LABS: FIBRIN SPLIT PRODUCT <10 ug/ml (<10)
[2018-03-17 14:31] LABS: PLATELET COUNT 54 10^3/UL (140-415)
[2018-03-17 15:19] LABS: LACTIC ACID 1.4 mmol/L (0.5-2.0)
[2018-03-17] MEDS: CASPOFUNGIN 50 MG in SOD CHLORIDE 0.9% 250 ML IVPB (19:25)
[2018-03-17] MEDS: TAMSULOSIN (SR) 0.4 MG CAP PO (20:21)
[2018-03-18] MEDS: ALBUMIN HUMAN 25% 50 ML IV (05:03)
[2018-03-18 05:08] LABS: AADO2 Arterial 92.6 mmHg (7.0-24.0); Arterial Base Excess -4.3 mmol/L (-3.0-3); Arterial Blood Gas Oxygen Sat 96.8 mmHG (95.0-98.0); Arterial COHb 1.3 % (0.0-3.0); Arterial Fraction of Oxyhgb 95.1 % (93.0-99.0); Arterial MetHb 0.5 % (0.0-1.5); Arterial pCO2 39.5 mmhg (35-45); MODE NASAL CANNULA; Site A-Line
[2018-03-18] MEDS: VANCOMYCIN HCL 250 MG/5ML POSYG PO (05:08)
[2018-03-18] MEDS: PANTOPRAZOLE (EC) 40 MG TAB PO (05:08)
[2018-03-18] MEDS: HYDROCORTISONE 100 MG INJ IV (05:11)
[2018-03-18] MEDS: metroNIDAZOLE 500 MG/NS (PMX) 100 ML IVPB (05:11)
[2018-03-18] MEDS: FUROSEMIDE 40 MG INJ IV (05:12)
[2018-03-18 05:27] LABS: ADD MAN DIFF? NO
[2018-03-18 05:31] LABS: WHITE BLOOD COUNT 19.9 10^3/ul (4.8-10.8)
[2018-03-18 05:31] LABS: ABNORMAL IP MESSAGE 1; BASOPHILS % 0.1 % (0.0-2.0); HEMATOCRIT 16.6 % (42.0-52.0); LYMPHOCYTES # 1.4 10^3/ul (0.8-2.9); LYMPHOCYTES % 7.1 % (15.0-51.0); MEAN CORPUSCULAR HEMOGLOBIN 30.7 pg (29.0-33.0); MEAN CORPUSCULAR HGB CONC 35.5 g/dl (32.0-37.0); MEAN CORPUSCULAR VOLUME 86.5 fl (82.0-101.0); MEAN PLATELET VOLUME 14.2 fl (7.4-10.4); MONOCYTE # 0.7 10^3/ul (0.3-0.9); MONOCYTES % 3.5 % (0.0-11.0); NEUTROPHIL # 17.5 10^3/ul (1.6-7.5); NEUTROPHILS % 87.7 % (39.0-77.0); NUCLEATED RED BLOOD CELLS # 0.2 10^3/ul (0.0-0.0); NUCLEATED RED BLOOD CELLS% 1.1 /100WBC (0.0-0.0); PLATELET COUNT 39 10^3/UL (140-415); POSITIVE DIFF @See below; RED BLOOD COUNT 1.92 10^6/ul (4.70-6.10); RED CELL DISTRIBUTION WIDTH 17.5 % (11.5-14.5)
[2018-03-18 05:55] LABS: INR 1.64; PROTIME 19.8 Sec (11.9-14.9); PT RATIO 1.5
[2018-03-18 05:56] LABS: HEMOGLOBIN 5.9 g/dl (14.0-18.0)
[2018-03-18 06:05] LABS: ANION GAP 14 (8-16); BLOOD UREA NITROGEN 33 mg/dl (7-20); CALCIUM 7.4 mg/dl (8.4-10.2); CARBON DIOXIDE 20 mmol/L (21-31); CHLORIDE 95 mmol/L (97-110); CREATININE 1.78 mg/dl (0.61-1.24); GLUCOSE 106 mg/dl (70-220); MAGNESIUM 1.7 mg/dl (1.7-2.5); PHOSPHORUS 4.3 mg/dl (2.5-4.9); POTASSIUM 3.6 mmol/L (3.5-5.1); SODIUM 125 mmol/L (135-144)
[2018-03-18 06:08] LABS: LACTIC ACID 1.4 mmol/L (0.5-2.0)
[2018-03-18] MEDS: SUCRALFATE (100 MG/ML) 10ML CUP PO (06:47)
[2018-03-18 07:24] LABS: HEMATOCRIT 17.1 % (42.0-52.0)
[2018-03-18 07:34] LABS: HEMOGLOBIN 5.9 g/dl (14.0-18.0)
[2018-03-18] MEDS: MAGNESIUM OXIDE 400 MG TAB PO (08:08)
[2018-03-18] MEDS: CHOLECALCIFEROL 1,000 UNIT TAB PO (08:08)
[2018-03-18 08:46] LABS: ANISOCYTOSIS 1+ (0-0); BAND NEUTROPHILS #M 1.5 10^3/ul (0.0-0.6); BAND NEUTROPHILS % (M) 8 % (0-4); GIANT THROMBO% (M) 2 % (0-0); LYMPHOCYTES #M 0.5 10^3/ul (0.8-2.9); LYMPHOCYTES % (M) 3 % (15-51); PLATELET ESTIMATE SIG DECREASED; SEGMENTED NEUTROPHILS (M) % 89 % (39-77); SMUDGE%M 16 % (0-0)
[2018-03-18] MEDS ORDERED: morphine (DRIP) 100 MG/100 ML 100 ML IV (09:30)
[2018-03-18] MEDS ORDERED: LORAZEPAM 2 MG INJ IV (09:30)
[2018-03-18 10:07] LABS: PATH REVIEW? YES
[2018-03-18] MEDS: morphine (DRIP) 100 MG/100 ML 100 ML IV (11:24)
[2018-03-19 09:03] LABS: PROCALCITONIN 1.76 ng/mL (<0.10)
== END 2018-03-18 16:10 | disposition expired | DRG 871 ==
LOC: E/R 06:40 → ICU 15:03 → TEL 12:45 → ICU 16:24
PROVIDERS: Internal Medicine
PROC: 06HY33Z Insertion of Infusion Device into Lower Vein, Percutaneous Approach (ICD-10-PCS; principal; 2018-03-09)
PROC: 02HV33Z Insertion of Infusion Device into Superior Vena Cava, Percutaneous Approach (ICD-10-PCS; 2018-03-09)
PROC: 0F9430Z Drainage of Gallbladder with Drainage Device, Percutaneous Approach (ICD-10-PCS; 2018-03-09)
PROC: 04HL33Z Insertion of Infusion Device into Left Femoral Artery, Percutaneous Approach (ICD-10-PCS; 2018-03-14)
PROC: 0W993ZX Drainage of Right Pleural Cavity, Percutaneous Approach, Diagnostic (ICD-10-PCS; 2018-03-16)
PROC: 30233K1 Transfusion of Nonautologous Frozen Plasma into Peripheral Vein, Percutaneous Approach (ICD-10-PCS; 2018-03-16)
PROC: 06HY33Z Insertion of Infusion Device into Lower Vein, Percutaneous Approach (ICD-10-PCS; 2018-03-17)
DX: A41.9 Sepsis, unspecified organism (principal); R65.21 Severe sepsis with septic shock; D65 Disseminated intravascular coagulation [defibrination syndrome]; G93.40 Encephalopathy, unspecified; N17.9 Acute kidney failure, unspecified; N39.0 Urinary tract infection, site not specified; K81.0 Acute cholecystitis; E87.4 Mixed disorder of acid-base balance; A04.72 Enterocolitis due to Clostridium difficile, not specified as recurrent; E87.1 Hypo-osmolality and hyponatremia; I42.9 Cardiomyopathy, unspecified; J90 Pleural effusion, not elsewhere classified; I25.10 Atherosclerotic heart disease of native coronary artery without angina pectoris; E87.70 Fluid overload, unspecified; G47.33 Obstructive sleep apnea (adult) (pediatric); R33.9 Retention of urine, unspecified; K76.89 Other specified diseases of liver; B96.4 Proteus (mirabilis) (morganii) as the cause of diseases classified elsewhere; B96.20 Unspecified Escherichia coli [E. coli] as the cause of diseases classified elsewhere; E16.2 Hypoglycemia, unspecified; Z95.0 Presence of cardiac pacemaker; Z86.711 Personal history of pulmonary embolism
CPT/HCPCS: 32555; 36430; 36569; 36600; 71045; 74018; 74176; 76700; 76775; 76937; 77012; 80048; 80053; 80076; 81001; 81003; 82140; 82150; 82306; 82533; 82540; 82550; 82607; 82803; 82945; 82962; 83036; 83540; 83605; 83615; 83735; 83935; 84100; 84145; 84155; 84157; 84300; 84425; 84443; 85014; 85018; 85025; 85049; 85362; 85378; 85384; 85610; 85651; 85670; 85730; 86706; 86850; 86900; 86901; 86945; 87040; 87070; 87075; 87081; 87086; 87102; 87116; 87340; 89051; 93306; 93970; 94660; 94664; 96361; 96374; 96375; 96376; 99285-25